=== PATIENT | male | born 1945 | race Caucasian/White ===

== ENCOUNTER 2018-04-16 12:01 | Day surgery (SDC) | payer MEDICARE, OTHER | END 2018-04-17 08:23 | disposition home or self-care (01) | LOC: GIL 12:01 | DX: R19.4 Change in bowel habit (principal); Z53.8 Procedure and treatment not carried out for other reasons; I10 Essential (primary) hypertension; E11.9 Type 2 diabetes mellitus without complications; Z86.010 Personal history of colon polyps; E78.5 Hyperlipidemia, unspecified; Z79.01 Long term (current) use of anticoagulants; Z79.82 Long term (current) use of aspirin; I25.10 Atherosclerotic heart disease of native coronary artery without angina pectoris | CPT/HCPCS: 82962 ==